=== PATIENT | female | born 1995 | race African-American/Black ===

== ENCOUNTER → 2020-03-16 11:22 | Outpatient (CLI) | payer MEDICAID, SELFPAY ==
[2020-03-16] MEDS: 0.9% Normal Saline 1,000 ML 999 ML IV (12:04)
[2020-03-16 12:05] VITALS: BP 107/67; PULSE 60; RESP 16; TEMP 36.7; O2SAT 100; BMI 27.2
[2020-03-16] MEDS: Ondansetron 4 MG/2 ML Vial IV (12:12)
[2020-03-16] MEDS: proCHLORPERazine 10 MG/2 ML Vial IV (12:54)
[2020-03-16] MEDS: Dext 5%-0.45% NS 1,000 ML 300 ML IV (13:05)
== END ==
PROVIDERS: Referring Provider Obstetrics & Gynecology; Visit Provider Obstetrics & Gynecology
DX: R11.10 Vomiting, unspecified (principal)
CPT/HCPCS: 96361 ×2; 96374; 96375; J7030; A4216; J2405; J7799